=== PATIENT | female | born 1960 | race Caucasian/White ===

== ENCOUNTER 2016-09-20 10:48 | Day surgery (SDC) | payer OTHER ==
[~2016-09-20] VITALS: Ht 162.6 cm; Wt 80.9 kg
[2016-09-20] VITALS (10 sets, daily range): BP systolic 100–132; BP diastolic 69–83; PULSE 64–88; RESP 11–19; O2SAT 94–100
[~2016-09-20 10:48] MED LIST: Acetaminophen IV 1,000 MG in IV Premix 1 EACH IV ONE; DIPH25CA6 PO; HYDR-4003 PO
[2016-09-20] MEDS ORDERED: Propofol 10,000 mCg/mL 20 mL Inj ONE (10:49)
[2016-09-20] MEDS ORDERED: MetoCLOpramide 5 mg/mL 2 mL Inj ONE (10:49)
[2016-09-20] MEDS ORDERED: Dexamethasone 4 mg/mL Inj ONE (10:49)
[2016-09-20] MEDS ORDERED: Ondansetron 2 mg/mL 2 mL Inj ONE (10:49)
[2016-09-20] MEDS: Lactated Ringer's 1,000 ML IV SCH ×2 (11:04→13:21)
[2016-09-20] MEDS ORDERED: LORA0.5T PO (11:07)
--- NOTE | 2016-09-20 12:27 | PCM.HPANE ---
Patient Data Date of Service: September 20, 2016 Surgeon Admitting Provider: Attending Provider:Jomar Braga MD Primary Care Physician:Tara Winslow MD Other Provider:Chelsi Ferreira Anesthesia Reason for Visit Right Kidney Stone Ht/WT & BMI Height (Feet): 5 Height (Inches): 4 Weight (Kilograms): 80.9 Body Mass Index 30.00 Allergies Coded Allergies: Sulfa (Sulfonamide Antibiotics) (Verified Allergy, Intermediate, Headache , 05/17/16) General sick feeling with headache shellfish derived (Verified Allergy, Intermediate, Rash,Itching,, 05/17/16 ) Throat and tougue itchy and face red cyclobenzaprine (Verified Adverse Reaction, Severe, DIARRHEA, 04/19/16) duloxetine (Verified Adverse Reaction, Severe, NAUSEA, DIZZINESS, 04/19/16) meperidine (Verified Adverse Reaction, Severe, NAUSEA, HALLUCINATIONS, 04/19/16) morphine (Verified Adverse Reaction, Severe, ELEV HEART RATE, PRURITIS, ) nortriptyline (Verified Adverse Reaction, Severe, HALLUCINATIONS, 04/19/16) oxycodone (Verified Adverse Reaction, Severe, HEADACHE, GI UPSET, 04/19/16) tramadol (Verified Adverse Reaction, Severe, "SEIZURE-LIKE SPELL", 04/19/16 ) venlafaxine (Verified Adverse Reaction, Severe, HEADACHE, AGITATION, ) Past Anesthesia History Anesthesia History: Denies:: Anesthesia Reactions, Fam Anesthesia Reaction, Fam Malignant Hypertherm, Malignant Hyperthermia Diabetes History Hx Diabetes?: No MRSA MRSA: No Medications Home Meds Incl Beta Jil: No Reported Medications Lorazepam 0.5 Mg Tablet0.5 Mg PO TID PRN For Anxiety Ref 0 09/20/16 diphenhydrAMINE HCl (Benadryl)25 Mg Xdhjlwr97.5 Mg PO HS PRN Ref 0 09/18/16 Hydrocodone-Acetaminophen 5-325 mg 1 Each Tablet1 Tablet PO Q4H PRN For Pain Ref 0 09/18/16 Discontinued Reported Medications Melatonin 1 Mg Tab.subl1 Mg SL 05/17/16 diphenhydrAMINE HCl (Benadryl)25 Mg Tfybqos10 Mg PO HS PRN Ref 0 05/17/16 Mirabegron ER (Myrbetriq)25 Mg Nucywz74 Mg PO DAILY 04/18/16 Mth/Me Blue/Sod Phos/Phen/Hyos (Uribel Capsule)1 Each Capsule1 Each PO QID 04/18/16 Nitrofurantoin Monohyd/M-Cryst (MacroBid)100 Mg [id number] Mg PO BID Ref 0 04/18/16 Hydrocodone-Acetaminophen 5-325 mg 1 Each Tablet2 Each PO QID PRN For Pain Ref 0 10/22/13 History History of ENT Problems?: Yes HEENT History: Positive for:: TMJ Denies:: Hearing Problem Denture Type: None Teeth Condition: Within Normal Limits Hx of Heart Problems?: Yes Cardiovascular History: Positive for:: Chest Pain (with panic attacks ) Denies:: Congestive Heart Failure Heart Murmur Hypertension (hld ) Irregular Heartbeat Hx of Respiratory Problem?: No Respiratory History: Denies:: Asthma COPD Emphysema Oxygen Administration Tuberculosis Use of C-PAP Machine Hx Neurologic Problems?: Yes Neurological History: Positive for:: Dizziness Headaches Denies:: CVA Multiple Sclerosis Parkinson's Disease Seizures Hx of GI Problems?: Yes Hx of Problems?: Yes Genitourinary History: Positive for:: Kidney Stones (right current problem, hx multiple prior stones, eswl) Denies:: Urinary Tract Infection (prior hx of- not current) Female Hx: Denies:: Currently (POST MENOPAUSE) Problems with Breasts? Skin History: Denies:: History Skin Disorders? Pressure Ulcers Hx Musculoskeletal Problems?: Yes Musculoskeletal History: Positive for:: Musculoskeletal Trauma (hx of shoulder repair-) Osteoarthritis Denies:: Back Injury Hx of Psycho/Social Problems?: Yes Psycho Social History: Positive for:: Anxiety (panic attacks) Hx Depression Hx Surgeries?: Yes (GALLBLADDER, , LEFT SHOULDER RPR, CYSTO/RT STENT/ LITHOTRIPSY X2,L) Hx Any Other Health Problems?: Yes Other History: Positive for:: Hospitalization Thyroid Disease (hx of parathyroidectomy) Denies:: Cancer Endocrine Disease History Blood Transfusions: Positive for:: Accept Blood Products? Denies:: Blood Transfusions Hx Diabetes: No Hx Alcohol Use: YesAlcoholic Drinks Per Day: rarelyHx Substance Use: No Smoking Status: Never Smoker Have You Smoked inLast 12 mo: No Stop/Bang S-Snoring: Do You Snore Loudly: No T-Tired: feel tired, fatigued: Yes O-Obsered: Observed not breath: No P-Blood Pressure: treated: No B- Body Mass Index > 35 kg/m2: No A- Age over 50: Yes N- Neck Large Circumference: No G- Gender Male: No NINA Total Score: 2 NINA Risk Assessment: Low Risk, <3 Yes Risk Assessment Category Category 1A: Patient has history of documented sleep apnea, and HAS NOT received any narcotic, sedative or anesthesia administration during this stay. Category 1B: Patient has history of documented sleep apnea, and HAS received any narcotic , sedative or anesthesia administration during this stay Category 2: Patient has SUSPECTED Obstructive Sleep Apnea, and HAS received any narcotic , sedative or anesthesia administration during this stay. Category 3: Patient has SUSPECTED Obstructive Sleep Apnea and HAS NOT received narcotic, sedative or anesthesia administration during this stay. Category 4: Outpatient in Procedural Areas with known sleep apnea or who screen positive for High Risk via the STOP/BANG questionnaire. Exam Exam Vital Signs Vital Signs Date Time Temp Pulse Resp B/P Pulse Ox O2 Delivery O2 Flow Rate FiO2 09/20/16 11:16 36.3 88 15 128/83 98 Room Air General Appearance: Alert, Oriented X3, Cooperative, Mild Distress (anxious about procedure) HEENT/AIRWAY: MP 2 Lungs: Clear to Auscultation, Normal Air Movement Heart: Exam Unremarkable, Regular Rate/Rhythm, No Murmurs/Rubs/Gallops Meds/Labs/Diagnostics Admission Meds Current Medications Lactated Ringer's (Lr) 1,000 ml @ 120 mls/hr Q8H20M IV Last administered on t 11:04; Start 09/20/16 at 05:00; Stop 09/20/16 at 13:19 Plan Impression Patient chart reviewed, patient interviewed and anesthestic plan with risks, benefits, and alternatives discussed, and informed consent obtained. NPO per Anesth. Guidelines: Yes ASA Physical Status: ASA2 Mod Systemic Disease Anesthetic Plan: GA Bene/Risks/Altern/Consents: Yes HP Complete Prior to Induction: Yes Naun Coburn MD September 20, 2016 12:27
[2016-09-20] MEDS ORDERED: Lactated Ringer's 500 ML IV PRN (13:32)
[2016-09-20] MEDS ORDERED: Lactated Ringer's 1,000 ML IV SCH (13:32)
[2016-09-20] MEDS ORDERED: hydrALAZINE 20 mg/mL Inj IVPUSH PRN (13:35)
[2016-09-20] MEDS ORDERED: hydrOXYzine Inj 50 MG/1 mL SDV IM PRN (13:35)
[2016-09-20] MEDS ORDERED: EPHEDrine Sulfate 50 mg/mL Inj IM PRN (13:35)
[2016-09-20] MEDS ORDERED: Phenylephrine 10,000 mCg/mL Inj IVPUSH PRN (13:35)
[2016-09-20] MEDS ORDERED: Labetalol 5 mg/mL 4 mL Inj IV PRN (13:35)
[2016-09-20] MEDS ORDERED: HYDROmorphone 1 mg/mL Inj IVPUSH PRN (13:35)
[2016-09-20] MEDS ORDERED: Ondansetron 2 mg/mL 2 mL Inj IVPUSH PRN (13:35)
[2016-09-20] MEDS ORDERED: EPHEDrine Sulfate 50 mg/mL Inj IVPUSH PRN (13:35)
[2016-09-20] MEDS ORDERED: Atropine 0.4 mg/mL Inj IVPUSH PRN (13:35)
[2016-09-20] MEDS ORDERED: HYDROcodone-APAP 5-325 mg Tablet PO PRN (14:00)
--- NOTE | 2016-09-20 15:01 | PCM.ANEP1 ---
Post Anesthesia Phase 1 PACU Phase 1 Assessment Date of Service: September 20, 2016 Vital Signs Vital Signs Date Time Temp Pulse Resp B/P Pulse Ox O2 Delivery O2 Flow Rate FiO2 09/20/16 14:54 37.0 79 19 112/81 94 Room Air 09/20/16 14:45 67 17 132/80 95 Room Air 09/20/16 14:30 68 14 125/75 100 Nasal Cannula 2 09/20/16 14:15 36.1 83 15 100/73 97 Nasal Cannula 2 09/20/16 14:10 87 14 117/75 95 Nasal Cannula 2 09/20/16 14:05 73 11 107/69 95 Nasal Cannula 2 09/20/16 14:02 36.1 72 12 107/69 97 Nasal Cannula 4 09/20/16 11:16 36.3 88 15 128/83 98 Room Air Anesthetic Administered: GA Level of Alertness: Awake, talking VILLALBA's with Equal Strength: Yes Pain: No Nausea or Vomiting: No Cardiovascular Function and Hy: Yes Oxygen Delivery: Room Air Lungs: Clear to Auscultation, Normal Air Movement Dermatome Level: Full Sensation Summary Pt able to ambulate and tolerate pudding without any N/V. Complications: No Follow up Care: No Naun Coburn MD September 20, 2016 15:01
--- NOTE | 2016-09-20 22:39 | OP ---
[address] [address] OPERATIVE REPORT PATIENT: MANNY DE LOS SANTOS : 1960 MR#: [id number] ADMIT: 09/20/2016 JOB ID: [id number] DATE OF SURGERY: 09/20/2016 SURGEON: Jomar Braga MD ANESTHESIA: Naun Coburn MD. ANESTHESIA: General. PREOPERATIVE DIAGNOSIS(ES): 1. A 1 cm right ureteropelvic junction calculus. 2. Right nephrolithiasis. 3. Right renal colic. POSTOPERATIVE DIAGNOSIS(ES): 1. A 1 cm right ureteropelvic junction calculus. 2. Right nephrolithiasis. 3. Right renal colic. OPERATION PERFORMED: Right extracorporeal shock wave lithotripsy (maximal power of 5.0. 1000 shocks to right UPJ stone. 1000 shocks to the lower pole stone and 500 shocks to the most inferior right lower pole stone. PROCEDURE SUMMARY: The patient was positioned supine on the lithotripsy gurney and the above-described stone was localized in the X, Y and Z plane. Lithotripsy was then commenced at minimal power level and gradually increased to maximum power level. The stone and its fragments were relocalized numerous times throughout the case using C-arm radiography. The procedure was then terminated. The patient was awakened, transferred to the gurney and transferred to the recovery area awake in stable condition. The patient tolerated the procedure well.
== END 2016-09-20 23:59 | disposition home or self-care (01) ==
LOC: SAS 10:48
PROVIDERS: ATTEND Specialist
DX: N20.0 Calculus of kidney (principal); N23 Unspecified renal colic; M19.90 Unspecified osteoarthritis, unspecified site; F41.0 Panic disorder [episodic paroxysmal anxiety]; F32.9 Major depressive disorder, single episode, unspecified; Z87.442 Personal history of urinary calculi; Z87.440 Personal history of urinary (tract) infections
CPT/HCPCS: 50590; J0131; J1100; J2250; J2405; J2765; J7120